=== PATIENT | male | born 1945 | race Caucasian/White ===

== ENCOUNTER 2023-03-29 17:44 | Inpatient (IN) | payer MEDICARE ==
[~2023-03-29 17:44] MED LIST: Iopamidol-370 76% 500 ML MDV (1 ML CHARGE) ONE
[2023-03-29 18:11] LABS: #Eosinphils 0.3 thou/uL (0.0-0.7); #Monocytes 0.4 thou/uL (0.11-0.59); #Neutrophils 2.3 thou/uL (1.40-6.50); %Basophils 0.6 % (0.0-1.0); %Eosinophils 6.3 % (0.0-10.0); %Lymphocytes 38.3 % (21.0-51.0); %Monocytes 8.5 % (0.0-10.0); %Neutrophils 46.1 % (42.0-75.0); Hematocrit 35.8 % (42.0-52.0); Mean Corpuscular HGB CONC 30.7 g/dL (32.0-36.0); Mean Corpuscular Hemoglobin 26.8 pg (27.0-31.0); Mean Corpuscular Volume 87.1 fl (78.0-98.0); Mean Platelet Volume 9.4 fL (7.4-10.4); Platelet Count 131 10x3/uL (130-400); RBC Distribution Width 14.6 % (11.5-14.5); Red Blood Cell (RBC) Count 4.11 mill/uL (4.70-6.10)
[2023-03-29] MEDS ORDERED: Aspirin Chewable 81 MG TAB ONE (18:25)
[2023-03-29] MEDS ORDERED: Furosemide 40 MG (4 mL) VIAL ONE (18:25)
[2023-03-29 18:36] LABS: ALT (SGPT) 16 U/L (8-55); AST (SGOT) 21 U/L (5-34); Albumin 3.9 g/dL (3.4-4.8); Alkaline Phosphatase 133 U/L (40-110); Anion Gap 14 mmol/L (10-20); BUN (Urea Nitrogen) 20 mg/dL (8.4-25.7); Bilirubin, Total 0.7 mg/dL (0.2-1.2); Calc. Creatinine Clearance 0 mL/min (70-130); Calcium 8.3 mg/dL (7.8-10.44); Carbon Dioxide 22 mmol/L (23-31); Chloride 105 mmol/L (98-107); Estimated GFR 62; Globulin 3.4 g/dL (2.4-3.5); Glucose 116 mg/dL (83-110); Magnesium 1.6 mg/dL (1.6-2.6); Protein, Total 7.3 g/dL (5.8-8.1); Sodium 137 mmol/L (136-145)
[2023-03-29 18:38] LABS: Troponin I Less than 0.010 ng/mL (< 0.028)
[2023-03-29 19:33] LABS: SARS-CoV-2 NAA Rapid Test Not Detected (NotDetected)
[2023-03-29] MEDS ORDERED: Acetaminophen 325 MG TAB PO PRN (21:15)
[2023-03-29] MEDS ORDERED: Ondansetron PF 4 MG/2 ML Vial IVP PRN (21:15)
[2023-03-29] MEDS ORDERED: Ondansetron ODT 4 MG TAB SL PRN (21:15)
[2023-03-29] MEDS ORDERED: Electrolyte Replacement Protocol FS SCH (22:00)
[2023-03-29 22:10] LABS: Troponin I 0.017 ng/mL (< 0.028)
[2023-03-29] MEDS ORDERED: Magnesium 2 GM/50 ML(in water) 2 GM in Premix 1 BAG IVPB SCH (23:00)
[2023-03-29] MEDS ORDERED: Magnesium 2 GM/50 ML BAG (IN WATER) ONE (23:02)
[2023-03-30 01:41] LABS: Troponin I 0.013 ng/mL (< 0.028)
[2023-03-30 03:35] LABS: #Eosinphils 0.3 thou/uL (0.0-0.7); #Monocytes 0.5 thou/uL (0.11-0.59); %Basophils 0.9 % (0.0-1.0); %Eosinophils 6.3 % (0.0-10.0); %Lymphocytes 36.8 % (21.0-51.0); %Monocytes 10.2 % (0.0-10.0); %Neutrophils 45.6 % (42.0-75.0); Hematocrit 34.2 % (42.0-52.0); Hemoglobin 10.5 g/dL (14.0-18.0); Mean Corpuscular HGB CONC 30.7 g/dL (32.0-36.0); Mean Corpuscular Hemoglobin 26.8 pg (27.0-31.0); Mean Corpuscular Volume 87.2 fl (78.0-98.0); Mean Platelet Volume 9.3 fL (7.4-10.4); Platelet Count 129 10x3/uL (130-400); RBC Distribution Width 14.7 % (11.5-14.5); Red Blood Cell (RBC) Count 3.92 mill/uL (4.70-6.10); White Blood Cell (WBC) Count 4.4 10x3/uL (4.8-10.8)
[2023-03-30 04:04] LABS: Anion Gap 12 mmol/L (10-20); BUN (Urea Nitrogen) 22 mg/dL (8.4-25.7); Calc. Creatinine Clearance 71 mL/min (70-130); Calcium 8.5 mg/dL (7.8-10.44); Carbon Dioxide 25 mmol/L (23-31); Chloride 104 mmol/L (98-107); Estimated GFR 60; Glucose 134 mg/dL (83-110); Potassium 4.1 mmol/L (3.5-5.1); Sodium 137 mmol/L (136-145)
[2023-03-30] MEDS ORDERED: Magnesium 2 GM/50 ML(in water) 2 GM in Premix 1 BAG IVPB SCH (08:00)
[2023-03-30] MEDS ORDERED: Magnesium 2 GM/50 ML BAG (IN WATER) ONE (08:02)
[2023-03-30] MEDS ORDERED: Atorvastatin Calcium 20 MG TAB ONE (08:48)
[2023-03-30] MEDS ORDERED: Furosemide 40 MG (4 mL) VIAL ONE (08:48)
[2023-03-30] MEDS ORDERED: Aspirin Chewable 81 MG TAB ONE ×2 (08:48→08:50)
[2023-03-30] MEDS ORDERED: Carvedilol 6.25 MG TAB ONE (08:49)
[2023-03-30] MEDS ORDERED: Enoxaparin 80 MG (0.8 mL) SYRINGE ONE (08:49)
[2023-03-30] MEDS ORDERED: Enoxaparin 30 MG (0.3 mL) SYRINGE ONE (08:49)
[2023-03-30] MEDS ORDERED: Apixaban 5 MG TAB PO SCH (09:00)
[2023-03-30] MEDS: Aspirin Chewable 81 MG TAB PO SCH (09:44)
[2023-03-30] MEDS: Carvedilol 6.25 MG TAB PO SCH ×2 (09:45→20:49)
[2023-03-30] MEDS: Atorvastatin Calcium 20 MG TAB PO SCH (09:45)
[2023-03-30] MEDS: Enoxaparin 100 MG (1 mL) SYRINGE SC SCH ×2 (09:50→20:49)
[2023-03-30] MEDS: Flecainide 50 MG TAB PO SCH ×2 (09:50→20:49)
[2023-03-30] MEDS: Furosemide 40 MG (4 mL) VIAL SLOW IVP SCH (09:50)
[2023-03-30 09:55] LABS: Hemoglobin A1c 5.6 % (4.0-6.0)
[2023-03-30 13:45] VITALS: BMI 29.9
[2023-03-31 06:36] LABS: #Eosinphils 0.3 thou/uL (0.0-0.7); #Monocytes 0.6 thou/uL (0.11-0.59); #Neutrophils 2.2 thou/uL (1.40-6.50); %Basophils 0.8 % (0.0-1.0); %Eosinophils 5.4 % (0.0-10.0); %Lymphocytes 40.8 % (21.0-51.0); %Monocytes 11.3 % (0.0-10.0); %Neutrophils 41.3 % (42.0-75.0); Hematocrit 33.5 % (42.0-52.0); Hemoglobin 10.2 g/dL (14.0-18.0); Mean Corpuscular HGB CONC 30.4 g/dL (32.0-36.0); Mean Corpuscular Hemoglobin 26.3 pg (27.0-31.0); Mean Corpuscular Volume 86.3 fl (78.0-98.0); Mean Platelet Volume 9.7 fL (7.4-10.4); Platelet Count 134 10x3/uL (130-400); RBC Distribution Width 14.8 % (11.5-14.5); Red Blood Cell (RBC) Count 3.88 mill/uL (4.70-6.10); White Blood Cell (WBC) Count 5.2 10x3/uL (4.8-10.8)
[2023-03-31 07:04] LABS: ALT (SGPT) 12 U/L (8-55); AST (SGOT) 19 U/L (5-34); Albumin 3.5 g/dL (3.4-4.8); Alkaline Phosphatase 121 U/L (40-110); Anion Gap 13 mmol/L (10-20); BUN (Urea Nitrogen) 19 mg/dL (8.4-25.7); Bilirubin, Direct 0.5 mg/dL (0.1-0.3); Bilirubin, Total 1.1 mg/dL (0.2-1.2); Calc. Creatinine Clearance 81 mL/min (70-130); Calcium 8.6 mg/dL (7.8-10.44); Carbon Dioxide 23 mmol/L (23-31); Chloride 103 mmol/L (98-107); Estimated GFR 74; Glucose 102 mg/dL (83-110); Magnesium 1.6 mg/dL (1.6-2.6); Potassium 3.9 mmol/L (3.5-5.1); Protein, Total 6.8 g/dL (5.8-8.1); Sodium 135 mmol/L (136-145)
[2023-03-31] MEDS ORDERED: Magnesium 2 GM/50 ML(in water) 2 GM in Premix 1 BAG IVPB SCH (08:00)
[2023-03-31] MEDS: Aspirin Chewable 81 MG TAB PO SCH (08:56)
[2023-03-31] MEDS: Carvedilol 6.25 MG TAB PO SCH ×2 (08:56→20:34)
[2023-03-31] MEDS: Atorvastatin Calcium 20 MG TAB PO SCH (08:56)
[2023-03-31] MEDS: Flecainide 50 MG TAB PO SCH (08:56)
[2023-03-31] MEDS: Furosemide 40 MG (4 mL) VIAL SLOW IVP SCH (08:59)
[2023-03-31] MEDS: Enoxaparin 100 MG (1 mL) SYRINGE SC SCH ×2 (09:59→20:34)
[2023-03-31] MEDS ORDERED: Potassium Chloride 20 MEQ TAB PO SCH (10:15)
[2023-04-01 05:19] LABS: #Eosinphils 0.3 thou/uL (0.0-0.7); #Monocytes 0.6 thou/uL (0.11-0.59); #Neutrophils 1.6 thou/uL (1.40-6.50); %Basophils 0.9 % (0.0-1.0); %Eosinophils 5.7 % (0.0-10.0); %Lymphocytes 45.4 % (21.0-51.0); %Monocytes 12.4 % (0.0-10.0); %Neutrophils 35.2 % (42.0-75.0); Hematocrit 35.4 % (42.0-52.0); Hemoglobin 10.8 g/dL (14.0-18.0); Mean Corpuscular HGB CONC 30.5 g/dL (32.0-36.0); Mean Corpuscular Hemoglobin 26.5 pg (27.0-31.0); Mean Platelet Volume 9.7 fL (7.4-10.4); Platelet Count 154 10x3/uL (130-400); RBC Distribution Width 14.8 % (11.5-14.5); Red Blood Cell (RBC) Count 4.07 mill/uL (4.70-6.10); White Blood Cell (WBC) Count 4.6 10x3/uL (4.8-10.8)
[2023-04-01 05:53] LABS: Anion Gap 12 mmol/L (10-20); BUN (Urea Nitrogen) 26 mg/dL (8.4-25.7); Calc. Creatinine Clearance 69 mL/min (70-130); Calcium 9.1 mg/dL (7.8-10.44); Carbon Dioxide 25 mmol/L (23-31); Chloride 104 mmol/L (98-107); Estimated GFR 62; Glucose 107 mg/dL (83-110); Magnesium 1.7 mg/dL (1.6-2.6); Potassium 4.3 mmol/L (3.5-5.1); Sodium 137 mmol/L (136-145)
[2023-04-01] MEDS ORDERED: Magnesium 2 GM/50 ML(in water) 2 GM in Premix 1 BAG IVPB SCH (08:00)
[2023-04-01] MEDS ORDERED: Amiodarone 200 MG TAB PO SCH (09:00)
[2023-04-01] MEDS ORDERED: Regadenoson 0.4 MG/5 ML SYRINGE ONE ×2 (09:27→09:38)
[2023-04-01] MEDS: Enoxaparin 100 MG (1 mL) SYRINGE SC SCH (11:15)
[2023-04-01] MEDS: Furosemide 40 MG (4 mL) VIAL SLOW IVP SCH (11:15)
[2023-04-01] MEDS: Carvedilol 6.25 MG TAB PO SCH (11:16)
[2023-04-01] MEDS: Aspirin Chewable 81 MG TAB PO SCH (11:16)
[2023-04-01] MEDS: Atorvastatin Calcium 20 MG TAB PO SCH (11:35)
[2023-04-01 15:54] VITALS: BP 114/63; TEMP 97.9
[2023-04-01] MEDS ORDERED: Atorvastatin Calcium 20 MG TAB PO SCH (21:00)
[2023-04-01] MEDS ORDERED: Apixaban 5 MG TAB PO SCH (21:00)
== END 2023-04-01 18:11 | disposition home or self-care (01) | DRG 291 ==
LOC: ERS 17:44 → ERHOLD 21:10 → 2SE 03-30 13:34 → OBSVTOIN 03-31 16:17
PROVIDERS: ADMIT Student in an Organized Health Care Education/Training Program; ATTEND Family Medicine
PROC: 5A09357 Assistance with Respiratory Ventilation, Less than 24 Consecutive Hours, Continuous Positive Airway Pressure (ICD-10-PCS; principal; 2023-04-01)
DX: I11.0 Hypertensive heart disease with heart failure (principal); I50.23 Acute on chronic systolic (congestive) heart failure; I25.10 Atherosclerotic heart disease of native coronary artery without angina pectoris; D53.9 Nutritional anemia, unspecified; D69.6 Thrombocytopenia, unspecified; R73.9 Hyperglycemia, unspecified; I08.1 Rheumatic disorders of both mitral and tricuspid valves; I48.0 Paroxysmal atrial fibrillation; Z95.1 Presence of aortocoronary bypass graft; Z11.52 Encounter for screening for COVID-19
CPT/HCPCS: 36415; 71045; 71275; 78452; 80048; 80053; 80076; 83036; 83605; 83735; 83880; 84443; 84484; 85025; 85379; 93005; 93017; 93306; 93798; 93970; 94760; 96365; 96372; 96374; 96375; 96376; A9502; G0378; J1650; J1940; J2785; J3475; Q9967